=== PATIENT | female | born 1985 | race African-American/Black ===

== ENCOUNTER 2018-11-27 21:52 | Inpatient (IN) ==
[2018-11-27] MEDS ORDERED: ONDANSETRON 4 MG/2 ML VIAL IV PRN (22:07)
[2018-11-27] MEDS ORDERED: TERBUTALINE 1 MG/1 ML VIAL SUBCUT PRN (22:07)
[2018-11-27] MEDS ORDERED: BUTORPHANOL 2 MG/ML VIAL IV PRN (22:07)
[2018-11-27 22:33] LABS: Basophils % 0.2 % (0.0-0.8); Eosinophils % 0.3 % (0.00-10.9); Hemoglobin 11.8 GM/DL (12.0-16.0); Immature Granulocytes % 1.4 %; Immature Granulocytes Absolute 0.12 #; Lymphocytes # 1.7 10*3/uL (1.4-4.0); Lymphocytes % 19.2 % (21.3-54.2); Mean Corpuscular HGB Conc 32.8 GM/DL (32-36); Mean Corpuscular Volume 74.1 FL (87-102); Mean Platelet Volume 11.4 FL (9.6-12.0); Neutrophils % 69.9 % (38.7-73.9); Platelet Count 285 T/CUMM (130-400); Red Blood Count 4.86 MC/CUMM (3.8-5.5); Red Cell Distribution Width 14.6 % (9.3-17.3); White Blood Count 8.7 T/CUMM (4-12)
[2018-11-27 23:54] LABS: Alanine Aminotransferase 14 U/L (13-56); Albumin 2.8 G/DL (3.4-5.0); Alkaline Phosphatase 209 U/L (45-117); Aspartate Amino Transferase 10 U/L (0-37); Bilirubin,Total < 0.39 MG/DL (0.2-1.0); Blood Urea Nitrogen 7 MG/DL (7-18); Calcium 9.6 MG/DL (8.5-10.1); Glucose 93 MG/DL (74-106); Osmolality,Calculated 274.5 MOS/KG (273-304); Total Protein 7.4 G/DL (6.4-8.3)
[2018-11-28] MEDS ORDERED: NALOXONE 0.4 MG/ML VIAL IV PRN (00:13)
[2018-11-28] MEDS ORDERED: ePHEDrine 50 MG/ML AMP IV PRN (00:13)
[2018-11-28] MEDS ORDERED: diphenhydrAMINE 50 MG/1 ML VIAL IV PRN ×2 (00:13)
[2018-11-28] MEDS ORDERED: hydrOXYzine HCL 25 MG/1 ML VIAL IM PRN (00:13)
[2018-11-28] MEDS ORDERED: PROMETHAZINE 25 MG/1 ML VIAL IM ONE (00:13)
[2018-11-28] MEDS ORDERED: CITRIC ACID/SODIUM CITRATE 30 ML UDCUP PO ONE (00:14)
[2018-11-28] MEDS ORDERED: FAMOTIDINE 20 MG/2 ML VIAL IV ONE (00:14)
[2018-11-28] MEDS: LACTATED RINGERS 1,000 ML IV PRN ×3 (00:20→05:24)
[2018-11-28] MEDS: AMPICILLIN INJ 2,000 MG in SODIUM CHLORIDE 0.9% 100 ML IV SCH ×3 (00:25→11:35)
[2018-11-28] MEDS ORDERED: fentaNYL 2 MCG/ROPIV 0.2% EPID 100 ML EPIDURAL SCH (00:30)
[2018-11-28 02:58] LABS: Apearance,Urine CLEAR (Clear); Bilirubin,Urine Negative (Negative); Blood, Urine Negative (Negative); Glucose,Urine (UA) Negative (Negative); Ketones,Urine 20 mg/dL (Negative); Mucus,Urine Occasional /LPF (Occasional); Nitrite,Urine Negative (Negative); Protein,Urine Negative; RBC,Urine 2 /HPF (0-4); Transitional Epi Cells,Urine Occasional /HPF (<1); Urine Color Yellow (Yellow); Urine Specific Gravity 1.027 (1.001-1.035); Urine Urobilinogen < 2.0 EU/DL (0.2-1.0); WBC,Urine 2 /HPF (0-6)
[2018-11-28] MEDS ORDERED: AMPICILLIN INJ 2,000 MG in SODIUM CHLORIDE 0.9% 100 ML IV SCH (04:00)
[2018-11-28] MEDS ORDERED: OXYTOCIN/LR 20 UNIT/1,000 ML BAG IV SCH (04:00)
[2018-11-28] MEDS ORDERED: ROPIVACAINE 0.5% 30 ML VIAL ONE (09:50)
[2018-11-28] MEDS ORDERED: fentaNYL 100 MCG/2 ML VIAL ONE (09:51)
[2018-11-28] MEDS ORDERED: LIDOCAINE 1% 50 ML VIAL ONE (13:16)
[2018-11-28] MEDS ORDERED: ONDANSETRON 4 MG/2 ML VIAL IV PRN (13:43)
[2018-11-28] MEDS ORDERED: OXYTOCIN/LR 20 UNIT/1,000 ML BAG IV ONE (13:43)
[2018-11-28] MEDS ORDERED: HYDROCORTISONE 2.5% RECTAL CREAM 30 GM TUBE TOP PRN (13:43)
[2018-11-28] MEDS ORDERED: oxyCODONE/ACETAMINOPHEN 5-325 MG TABLET PO PRN (13:43)
[2018-11-28] MEDS ORDERED: LANOLIN 50% CREAM 0.3 OZ TUBE TOP PRN (13:43)
[2018-11-28] MEDS ORDERED: BISACODYL 10 MG SUPP RECTAL PRN (13:43)
[2018-11-28] MEDS ORDERED: WITCH HAZEL PADS 100/JAR TOP PRN (13:43)
[2018-11-28] MEDS ORDERED: BENZOCAINE 20%/MENTHOL 0.5% SPRAY 56 GM CAN TOP PRN (13:43)
[2018-11-28] MEDS ORDERED: ACETAMINOPHEN 325 MG TABLET PO PRN (13:43)
[2018-11-28] MEDS ORDERED: MEASLES/MUMPS/RUBELLA VACCINE 0.5 ML VIAL SUBCUT ONE (14:00)
[2018-11-28] MEDS ORDERED: RHO(D) IMMUNE GLOBULIN 300 MCG SYRINGE IM ONE (14:00)
[2018-11-28] MEDS ORDERED: DIPH/TET/ACEL PERT BOOSTER VACCINE 0.5 ML VIAL IM ONE (14:00)
[2018-11-28] MEDS: IBUPROFEN 800 MG TABLET PO PRN ×2 (15:30→21:16)
[2018-11-28] MEDS: DOCUSATE SODIUM 100 MG CAPSULE PO SCH (21:16)
[2018-11-28] MEDS: oxyCODONE/ACETAMINOPHEN 5-325 MG TABLET PO PRN (21:16)
[2018-11-29] MEDS: IBUPROFEN 800 MG TABLET PO PRN ×2 (04:16→14:43)
[2018-11-29] MEDS: oxyCODONE/ACETAMINOPHEN 5-325 MG TABLET PO PRN (04:16)
[2018-11-29 05:55] LABS: Basophils # 0.1 10*3/uL (0.0-0.2); Basophils % 0.3 % (0.0-0.8); Eosinophils % 0.2 % (0.00-10.9); Hematocrit 29.2 VOL% (35.7-47.0); Hemoglobin 9.6 GM/DL (12.0-16.0); Immature Granulocytes % 0.9 %; Immature Granulocytes Absolute 0.15 #; Lymphocytes # 2.2 10*3/uL (1.4-4.0); Lymphocytes % 13.5 % (21.3-54.2); Mean Corpuscular HGB Conc 32.9 GM/DL (32-36); Mean Corpuscular Volume 74.1 FL (87-102); Mean Platelet Volume 12.1 FL (9.6-12.0); Monocytes % 8.6 % (1.7-12.7); Neutrophils % 76.5 % (38.7-73.9); Platelet Count 220 T/CUMM (130-400); Red Blood Count 3.94 MC/CUMM (3.8-5.5); Red Cell Distribution Width 14.3 % (9.3-17.3); White Blood Count 16.5 T/CUMM (4-12)
[2018-11-29] MEDS: DOCUSATE SODIUM 100 MG CAPSULE PO SCH ×2 (15:54→21:36)
[2018-11-30] MEDS: IBUPROFEN 800 MG TABLET PO PRN (00:10)
[2018-11-30 07:19] VITALS: BP 124/68
[2018-11-30] MEDS: DOCUSATE SODIUM 100 MG CAPSULE PO SCH (13:31)
== END 2018-11-30 12:15 | disposition home or self-care (01) | DRG 807 ==
LOC: N.LD 21:52 → N.OB 11-28 17:26
PROVIDERS: ADMIT Specialist; ATTEND Specialist